=== PATIENT | female | born 1980 | race African-American/Black ===

== ENCOUNTER 2018-04-09 17:23 | Emergency (ER) | payer OTHER ==
[2018-04-09] MEDS ORDERED: diphenhydrAMINE INJ 50MG/ML VIAL (J1200) IV (18:47)
[2018-04-09] MEDS ORDERED: NS 1,000 ML IV (19:00)
[2018-04-09] MEDS ORDERED: METOCLOPRAMIDE INJ 10MG/2ML VIAL (J2765) IV (19:00)
[2018-04-09] MEDS ORDERED: KETOROLAC 30 MG/ML VIAL (J1885) IV (19:00)
== END 2018-04-09 18:56 | disposition left against medical advice (07) ==
LOC: M ED 17:23
DX: R51 Headache (principal); R42 Dizziness and giddiness; R11.0 Nausea; H53.8 Other visual disturbances; M54.2 Cervicalgia; M48.02 Spinal stenosis, cervical region; Z79.899 Other long term (current) drug therapy
CPT/HCPCS: 99282

== ENCOUNTER 2018-04-12 08:00 | Emergency (ER) | payer OTHER | END 2018-04-12 09:13 | disposition home or self-care (01) | LOC: M ED 08:00 | DX: R51 Headache (principal); M48.02 Spinal stenosis, cervical region; Z79.899 Other long term (current) drug therapy | CPT/HCPCS: 70450 ==

== ENCOUNTER → 2018-05-25 | Outpatient (CLI) | payer OTHER | LOC: M RAD 07:52 | DX: M50.31 Other cervical disc degeneration, high cervical region (principal); M50.321 Other cervical disc degeneration at C4-C5 level; M50.322 Other cervical disc degeneration at C5-C6 level; M50.323 Other cervical disc degeneration at C6-C7 level; M50.221 Other cervical disc displacement at C4-C5 level; M50.222 Other cervical disc displacement at C5-C6 level; M50.223 Other cervical disc displacement at C6-C7 level; M25.78 Osteophyte, vertebrae; M54.12 Radiculopathy, cervical region | CPT/HCPCS: 72125 ==

== ENCOUNTER 2018-06-29 06:02 | Emergency (ER) | payer OTHER ==
[~2018-06-29] VITALS: Ht 160 cm; Wt 61.4 kg
[~2018-06-29 06:02] MED LIST: ALEV220T26 PO; HYDR50TA70 PO; LEXA1TAB PO; TRAZ25TA PO
[2018-06-29] MEDS ORDERED: ACETAMINOPHEN 325 MG TAB PO ONE (07:15)
[2018-06-29] MEDS ORDERED: KETOROLAC 60 MG/2 ML VIAL (J1885) IM ONE (07:15)
[2018-06-29 08:11] VITALS: BP 114/61
== END 2018-06-29 08:14 | disposition home or self-care (01) ==
LOC: M ED 06:02
DX: S39.012A Strain of muscle, fascia and tendon of lower back, initial encounter (principal); S16.1XXA Strain of muscle, fascia and tendon at neck level, initial encounter; W00.0XXA Fall on same level due to ice and snow, initial encounter; Y92.810 Car as the place of occurrence of the external cause; M51.9 Unspecified thoracic, thoracolumbar and lumbosacral intervertebral disc disorder; Z79.899 Other long term (current) drug therapy
CPT/HCPCS: 96372; 99283; J1885

== ENCOUNTER 2018-11-11 08:46 | Emergency (ER) | payer OTHER ==
[~2018-11-11] VITALS: Ht 160 cm; Wt 67.5 kg
[2018-11-11] MEDS ORDERED: HYDR-3363 (08:54)
[2018-11-11] MEDS ORDERED: BUPR15TA (08:54)
[2018-11-11] MEDS ORDERED: ZONI50CA3 (08:54)
[2018-11-11] MEDS ORDERED: VITA-122 (08:54)
[2018-11-11 09:41] VITALS: BP 111/71
== END 2018-11-11 09:50 | disposition home or self-care (01) ==
LOC: M ED 08:46
DX: I95.9 Hypotension, unspecified (principal); R51 Headache; F32.9 Major depressive disorder, single episode, unspecified; F41.9 Anxiety disorder, unspecified; M48.00 Spinal stenosis, site unspecified; M51.9 Unspecified thoracic, thoracolumbar and lumbosacral intervertebral disc disorder; Z79.899 Other long term (current) drug therapy

== ENCOUNTER → 2019-02-09 | Outpatient (REF) ==
[~2019-02-09] MED LIST changes: +BUPR15TA; +HYDR-3363; +TRAZ1TAB11 PO; -TRAZ25TA PO; +VITA-122; +ZONI50CA3
--- NOTE | 2019-02-09 14:33 | REP ---
REASON: Disability. FINDINGS: The compartments are symmetric and relatively well maintained. There is no acute fracture or destructive osseous lesion. Electronically Signed by Seun Ely DO 02/09/2019 05:12 P
--- NOTE | 2019-02-09 15:30 | REP ---
HISTORY: Disability. COMPARISON: None. Three limited views were obtained. The disc spaces are symmetric and well maintained. Vertebral body height and alignment is normal. The pedicles are intact bilaterally. IMPRESSION: No abnormality is noted. Incidental note is made of bilateral pelvic phleboliths. Electronically Signed by Seun Ely DO 02/09/2019 05:18 P
== END ==
LOC: M SMT 12:59
PROVIDERS: ATTEND Internal Medicine
DX: Z02.71 Encounter for disability determination (principal)